=== PATIENT | female | born 2005 | race Two or more races ===

== ENCOUNTER 2024-03-03 13:08 | Emergency (ER) | payer OTHER ==
[2024-03-03 13:32] VITALS: BP 111/80; PULSE 81; RESP 17; TEMP 97.8; BMI 21.1
[2024-03-03] MEDS ORDERED: KETOROLAC TROMETHAMINE 30 MG/1 ML VIAL ONE (14:25)
[2024-03-03] MEDS: KETOROLAC TROMETHAMINE 30 MG/1 ML VIAL IM ONE (14:35)
== END 2024-03-03 14:54 | disposition home or self-care (01) ==
LOC: JERFT 13:08
PROC: 3E0233Z Introduction of Anti-inflammatory into Muscle, Percutaneous Approach (ICD-10-PCS; principal; 2024-03-03)
DX: S93.401A Sprain of unspecified ligament of right ankle, initial encounter (principal); M25.571 Pain in right ankle and joints of right foot; X50.1XXA Overexertion from prolonged static or awkward postures, initial encounter; Y93.68 Activity, volleyball (beach) (court)
CPT/HCPCS: 73610-TC-RT-FY; 99284-25

== ENCOUNTER 2025-07-15 14:29 | Emergency (ER) | payer OTHER ==
[2025-07-15 14:41] VITALS: BP 127/77; PULSE 71; RESP 20; TEMP 98.4; BMI 21.2
[2025-07-15] MEDS ORDERED: KETOROLAC TROMETHAMINE 15 MG/ML VIAL ONE (15:27)
[2025-07-15] MEDS ORDERED: ONDANSETRON 4 MG/2 ML VIAL ONE (15:27)
[2025-07-15] MEDS: KETOROLAC TROMETHAMINE 15 MG/ML VIAL IVPUSH ONE (15:37)
[2025-07-15] MEDS: SODIUM CHLORIDE 0.9% 500 ML INFUS.BAG IV ONE (15:37)
[2025-07-15] MEDS: ONDANSETRON 4 MG/2 ML VIAL IVPUSH ONE (15:38)
[2025-07-15] MEDS: ONDANSETRON *ODT* 4 MG TABLET SL ONE (15:44)
[2025-07-15 16:10] LABS: HIV INTERPRETATION NEGATIVE (NEGATIVE)
[2025-07-15 16:11] LABS: HCV DIAGNOSTIC IN-HOUSE W/RFLX NON-REACTIVE (NONREACTIVE)
[2025-07-15 17:18] LABS: COCAINE, UR NEGATIVE (NEGATIVE); PHENCYCLIDINE,URINE NEGATIVE (NEGATIVE); URINE AMPHETAMINES NEGATIVE (NEGATIVE)
[2025-07-15 17:19] LABS: METHADONE, UR NEGATIVE (NEGATIVE); OPIATES, URI NEGATIVE (NEGATIVE); URINE BARBITURATES NEGATIVE (NEGATIVE); URINE BENZODIAZEPINES NEGATIVE (NEGATIVE)
== END 2025-07-15 17:38 | disposition home or self-care (01) ==
LOC: JER 14:29
PROC: 3E033GC Introduction of Other Therapeutic Substance into Peripheral Vein, Percutaneous Approach (ICD-10-PCS; principal; 2025-07-15)
PROC: 3E033GC Introduction of Other Therapeutic Substance into Peripheral Vein, Percutaneous Approach (ICD-10-PCS; 2025-07-15)
DX: R51.9 Headache, unspecified (principal); R11.0 Nausea; R42 Dizziness and giddiness; L29.9 Pruritus, unspecified; R10.9 Unspecified abdominal pain
CPT/HCPCS: 36415; 80307; 86780; 86803; 87389; 87491; 87591; 99284-25